=== PATIENT | male | born 1960 | race Caucasian/White ===

== ENCOUNTER 2021-11-30 13:32 | Inpatient (IN) ==
[2021-11-30 16:23] LABS: Basophils % 0.3 % (0.0-0.8); Eosinophils # 0.1 10*3/uL (0.0-0.87); Eosinophils % 0.8 % (0.00-10.9); Hematocrit 42.6 VOL% (42.0-52.0); Hemoglobin 13.5 GM/DL (14.0-18.0); Immature Granulocytes % 0.2 %; Immature Granulocytes Absolute 0.02 #; Lymphocytes # 1.2 10*3/uL (1.4-4.0); Mean Corpuscular HGB Conc 31.7 GM/DL (32-36); Mean Corpuscular Volume 93.4 FL (87-102); Mean Platelet Volume 11.2 FL (9.6-12.0); Monocytes # 0.6 10*3/uL (0.11-0.8); Monocytes % 6.1 % (1.7-12.7); Neutrophils % 79.6 % (38.7-73.9); Platelet Count 245 T/CUMM (130-400); Red Blood Count 4.56 MC/CUMM (3.8-5.5); Red Cell Distribution Width 16.2 % (9.3-17.3)
[2021-11-30 16:59] LABS: Albumin 2.7 G/DL (3.4-5.0); Bilirubin,Total 0.9 MG/DL (0.20-1.00); Calcium 8.4 MG/DL (8.5-10.1); Osmolality,Calculated 283.1 MOS/KG (273-304); Potassium 4.1 MMOL/L (3.5-5.1); Total Protein 5.7 G/DL (6.4-8.2)
[2021-11-30] MEDS ORDERED: GLUCAGON 1 MG VIAL IM PRN (17:27)
[2021-11-30] MEDS ORDERED: lisinopriL 10 MG TABLET PO STA (17:32)
[2021-11-30] MEDS ORDERED: ACETAMINOPHEN 325 MG TABLET PO PRN (17:32)
[2021-11-30] MEDS ORDERED: ONDANSETRON 4 MG/2 ML VIAL IV PRN (17:32)
[2021-11-30] MEDS ORDERED: hydrALAZINE 20 MG/1 ML VIAL IV PRN (17:32)
[2021-11-30] MEDS ORDERED: carvediloL 3.125 MG TABLET PO STA (17:32)
[2021-11-30] MEDS ORDERED: ALBUTEROL/IPRATROPIUM 3 ML NEB RESP TX PRN (17:42)
[2021-11-30] MEDS ORDERED: carvediloL 12.5 MG TABLET PO STA (17:44)
[2021-11-30] MEDS ORDERED: DEXTROSE 10% 250 ML BAG IV PRN (17:46)
[2021-11-30] MEDS ORDERED: MELATONIN 3 MG TABLET PO PRN (17:46)
[2021-11-30] MEDS: ENOXAPARIN 40 MG/0.4 ML SYRINGE SUBCUT SCH (18:06)
[2021-11-30] MEDS: predniSONE 20 MG TABLET PO SCH (18:10)
[2021-11-30 18:37] LABS: Thyroid Stimulating Hormone 2.29 uIU/ml (0.358-3.74)
[2021-11-30] MEDS: BUDESONIDE 0.5 MG/2 ML NEB RESP TX SCH (19:15)
[2021-11-30] MEDS ORDERED: FUROSEMIDE INJ 100 MG in SODIUM CHLORIDE 0.9% 90 ML IV SCH (20:00)
[2021-11-30] MEDS: POTASSIUM CHLORIDE 20 MEQ TABLET PO SCH (21:16)
[2021-11-30] MEDS: carvediloL 12.5 MG TABLET PO SCH (21:16)
[2021-11-30] MEDS: MONTELUKAST CHEW 4 MG TABLET PO SCH (21:16)
[2021-11-30 21:37] LABS: Barbiturates Screen,Urine Negative (Negative); Benzodiazepines Screen,Urine Negative (Negative); Cannabinoid Screen,Urine Positive (Negative); Opiate Screen,Urine Negative (Negative); Phencyclidine Screen,Urine Negative (Negative)
[2021-12-01 04:37] LABS: Basophils % 0.3 % (0.0-0.8); Hematocrit 38.2 VOL% (42.0-52.0); Hemoglobin 12.5 GM/DL (14.0-18.0); Immature Granulocytes % 0.3 %; Immature Granulocytes Absolute 0.02 #; Lymphocytes # 0.7 10*3/uL (1.4-4.0); Lymphocytes % 9.3 % (21.2-54.2); Mean Corpuscular HGB Conc 32.7 GM/DL (32-36); Mean Corpuscular Volume 90.7 FL (87-102); Mean Platelet Volume 10.2 FL (9.6-12.0); Monocytes # 0.2 10*3/uL (0.11-0.8); Monocytes % 2.1 % (1.7-12.7); Platelet Count 214 T/CUMM (130-400); Red Blood Count 4.21 MC/CUMM (3.8-5.5); Red Cell Distribution Width 15.9 % (9.3-17.3); White Blood Count 7.2 T/CUMM (4-12)
[2021-12-01 05:06] LABS: Calcium 8.7 MG/DL (8.5-10.1); Osmolality,Calculated 279.4 MOS/KG (273-304); Potassium 3.8 MMOL/L (3.5-5.1); Risk Ratio 3.04; VLDL Cholesterol 10.4 MG/DL
[2021-12-01] MEDS: BUDESONIDE 0.5 MG/2 ML NEB RESP TX SCH ×2 (06:56→19:00)
[2021-12-01] MEDS ORDERED: lisinopriL 20 MG TABLET PO SCH ×2 (09:00)
[2021-12-01] MEDS ORDERED: carvediloL 12.5 MG TABLET PO SCH (09:00)
[2021-12-01] MEDS: carvediloL 12.5 MG TABLET PO SCH ×2 (09:04→20:50)
[2021-12-01] MEDS: ASPIRIN CHEW 81 MG TABLET PO SCH (09:04)
[2021-12-01] MEDS: predniSONE 20 MG TABLET PO SCH (09:05)
[2021-12-01] MEDS: NICOTINE 21 MG/24 HR PATCH TRANSDERM SCH (09:05)
[2021-12-01] MEDS: lisinopriL 20 MG TABLET PO SCH (09:05)
[2021-12-01] MEDS: PANTOPRAZOLE 40 MG TABLET PO SCH (09:05)
[2021-12-01] MEDS: FUROSEMIDE 40 MG/4 ML VIAL IV SCH ×2 (09:18→17:45)
[2021-12-01] MEDS: POTASSIUM CHLORIDE 20 MEQ TABLET PO SCH ×2 (09:18→20:51)
[2021-12-01] MEDS: ENOXAPARIN 40 MG/0.4 ML SYRINGE SUBCUT SCH (17:45)
[2021-12-01] MEDS: MONTELUKAST CHEW 4 MG TABLET PO SCH (20:51)
[2021-12-02] MEDS: FUROSEMIDE 40 MG/4 ML VIAL IV SCH ×2 (01:25→08:34)
[2021-12-02 04:44] LABS: Basophils % 0.2 % (0.0-0.8); Hematocrit 37.6 VOL% (42.0-52.0); Hemoglobin 12.3 GM/DL (14.0-18.0); Immature Granulocytes % 0.4 %; Immature Granulocytes Absolute 0.04 #; Lymphocytes # 1.6 10*3/uL (1.4-4.0); Lymphocytes % 14.2 % (21.2-54.2); Mean Corpuscular HGB Conc 32.7 GM/DL (32-36); Mean Corpuscular Volume 90.4 FL (87-102); Mean Platelet Volume 10.8 FL (9.6-12.0); Monocytes # 0.9 10*3/uL (0.11-0.8); Monocytes % 7.7 % (1.7-12.7); Neutrophils % 77.5 % (38.7-73.9); Platelet Count 228 T/CUMM (130-400); Red Blood Count 4.16 MC/CUMM (3.8-5.5); Red Cell Distribution Width 15.9 % (9.3-17.3); White Blood Count 11.4 T/CUMM (4-12)
[2021-12-02 05:16] LABS: Osmolality,Calculated 283.4 MOS/KG (273-304); Potassium 3.4 MMOL/L (3.5-5.1)
[2021-12-02] MEDS: BUDESONIDE 0.5 MG/2 ML NEB RESP TX SCH ×2 (07:20→19:42)
[2021-12-02] MEDS: predniSONE 20 MG TABLET PO SCH (08:33)
[2021-12-02] MEDS: carvediloL 12.5 MG TABLET PO SCH ×2 (08:33→21:12)
[2021-12-02] MEDS: lisinopriL 20 MG TABLET PO SCH (08:33)
[2021-12-02] MEDS: PANTOPRAZOLE 40 MG TABLET PO SCH (08:34)
[2021-12-02] MEDS: ASPIRIN CHEW 81 MG TABLET PO SCH (08:34)
[2021-12-02] MEDS: NICOTINE 21 MG/24 HR PATCH TRANSDERM SCH (08:34)
[2021-12-02] MEDS: POTASSIUM CHLORIDE 20 MEQ TABLET PO SCH ×2 (08:34→21:12)
[2021-12-02] MEDS: amLODIPine 5 MG TABLET PO SCH (12:49)
[2021-12-02] MEDS: FUROSEMIDE 40 MG TABLET PO SCH (16:49)
[2021-12-02] MEDS: ENOXAPARIN 40 MG/0.4 ML SYRINGE SUBCUT SCH (18:08)
[2021-12-02] MEDS: MONTELUKAST CHEW 4 MG TABLET PO SCH (21:12)
[2021-12-03 05:02] LABS: Basophils % 0.3 % (0.0-0.8); Hematocrit 38.7 VOL% (42.0-52.0); Hemoglobin 12.5 GM/DL (14.0-18.0); Immature Granulocytes % 0.6 %; Immature Granulocytes Absolute 0.07 #; Lymphocytes # 1.6 10*3/uL (1.4-4.0); Lymphocytes % 13.7 % (21.2-54.2); Mean Corpuscular HGB Conc 32.3 GM/DL (32-36); Mean Corpuscular Volume 92.1 FL (87-102); Mean Platelet Volume 10.5 FL (9.6-12.0); Monocytes % 8.5 % (1.7-12.7); Neutrophils % 76.9 % (38.7-73.9); Platelet Count 235 T/CUMM (130-400); Red Cell Distribution Width 15.4 % (9.3-17.3); White Blood Count 11.7 T/CUMM (4-12)
[2021-12-03 05:27] LABS: Calcium 8.8 MG/DL (8.5-10.1); Osmolality,Calculated 281.7 MOS/KG (273-304); Potassium 4.2 MMOL/L (3.5-5.1)
[2021-12-03] MEDS: BUDESONIDE 0.5 MG/2 ML NEB RESP TX SCH (07:44)
[2021-12-03] MEDS: carvediloL 12.5 MG TABLET PO SCH (08:39)
[2021-12-03] MEDS: ASPIRIN CHEW 81 MG TABLET PO SCH (08:39)
[2021-12-03] MEDS: amLODIPine 5 MG TABLET PO SCH (08:39)
[2021-12-03] MEDS: lisinopriL 20 MG TABLET PO SCH (08:39)
[2021-12-03] MEDS: PANTOPRAZOLE 40 MG TABLET PO SCH (08:39)
[2021-12-03] MEDS: FUROSEMIDE 40 MG TABLET PO SCH (08:40)
[2021-12-03] MEDS: POTASSIUM CHLORIDE 20 MEQ TABLET PO SCH (08:40)
[2021-12-03] MEDS: NICOTINE 21 MG/24 HR PATCH TRANSDERM SCH (08:43)
[2021-12-03] MEDS ORDERED: predniSONE 10 MG TABLET PO SCH (09:00)
[2021-12-03] MEDS ORDERED: predniSONE 20 MG TABLET PO SCH (09:00)
[2021-12-03 12:08] VITALS: BP 121/69
== END 2021-12-03 12:55 | disposition home or self-care (01) | DRG 291 ==
LOC: N.ED 13:32 → N.TELEN 17:26 → SUATTDRO 17:26 → N.TELEN 19:24
PROVIDERS: ADMIT Internal Medicine; ATTEND Internal Medicine

== ENCOUNTER 2022-03-20 08:11 | Inpatient (IN) ==
[2022-03-20] MEDS ORDERED: cloNIDine 0.1 MG TABLET PO STA (08:39)
[2022-03-20] MEDS ORDERED: hydrALAZINE 20 MG/1 ML VIAL IV STA (08:40)
[2022-03-20 09:12] LABS: Arterial Base Excess iSTAT 0 MMOL/L (-2.5-2.5); Arterial Bicarbonate iSTAT 23.6 MMOL/L (20-26); Arterial O2 Saturation iSTAT 93 % (95-100); Arterial PCO2 iSTAT 33 MM HG (35-48); Arterial PO2 iSTAT 61 MM HG (80-95); Arterial Total CO2 iSTAT 25 MMO/L (23-27); Arterial pH iSTAT 7.466 (7.35-7.45)
[2022-03-20 09:21] LABS: Basophils % 0.3 % (0.0-0.8); Eosinophils % 0.2 % (0.00-10.9); Hematocrit 39.6 VOL% (42.0-52.0); Immature Granulocytes % 0.3 %; Immature Granulocytes Absolute 0.03 #; Lymphocytes # 1.3 10*3/uL (1.4-4.0); Lymphocytes % 11.4 % (21.2-54.2); Mean Corpuscular HGB Conc 32.8 GM/DL (32-36); Mean Corpuscular Volume 87.4 FL (87-102); Monocytes # 0.5 10*3/uL (0.11-0.8); Monocytes % 4.4 % (1.7-12.7); Neutrophils % 83.4 % (38.7-73.9); Platelet Count 272 T/CUMM (130-400); Red Blood Count 4.53 MC/CUMM (3.8-5.5); Red Cell Distribution Width 15.1 % (9.3-17.3); White Blood Count 11.5 T/CUMM (4-12)
[2022-03-20 10:02] LABS: Albumin 3.2 G/DL (3.4-5.0); Osmolality,Calculated 278.4 MOS/KG (273-304); Potassium 4.2 MMOL/L (3.5-5.1); Total Protein 7.3 G/DL (6.4-8.2)
[2022-03-20] MEDS ORDERED: METOPROLOL TARTRATE 5 MG/5 ML VIAL IV STA (10:08)
[2022-03-20] MEDS ORDERED: FUROSEMIDE 40 MG/4 ML VIAL IV STA (10:35)
[2022-03-20] MEDS ORDERED: BISACODYL 5 MG TABLET PO PRN (10:36)
[2022-03-20] MEDS ORDERED: ONDANSETRON 4 MG/2 ML VIAL IV PRN (10:36)
[2022-03-20] MEDS ORDERED: MORPHINE 2 MG/1 ML SYRINGE IV PRN (10:36)
[2022-03-20] MEDS ORDERED: ACETAMINOPHEN 325 MG TABLET PO PRN (10:36)
[2022-03-20] MEDS ORDERED: hydrALAZINE 20 MG/1 ML VIAL IV PRN (10:36)
[2022-03-20 11:00] LABS: Barbiturates Screen,Urine Negative (Negative); Benzodiazepines Screen,Urine Negative (Negative); Cannabinoid Screen,Urine Negative (Negative); Opiate Screen,Urine Negative (Negative); Phencyclidine Screen,Urine Negative (Negative)
[2022-03-20] MEDS: ENOXAPARIN 40 MG/0.4 ML SYRINGE SUBCUT SCH (11:05)
[2022-03-20] MEDS: LOSARTAN 25 MG TABLET PO SCH ×2 (11:05→21:33)
[2022-03-20] MEDS: carvediloL 25 MG TABLET PO SCH ×2 (11:07→21:33)
[2022-03-20 11:08] LABS: Risk Ratio 3.17; VLDL Cholesterol 15.4 MG/DL
[2022-03-20] MEDS: ALBUTEROL/IPRATROPIUM 3 ML NEB RESP TX SCH ×2 (14:35→19:22)
[2022-03-20] MEDS: FUROSEMIDE 40 MG/4 ML VIAL IV SCH (17:34)
[2022-03-21] MEDS: ALBUTEROL/IPRATROPIUM 3 ML NEB RESP TX SCH ×4 (01:50→19:34)
[2022-03-21 07:19] LABS: Calcium 8.9 MG/DL (8.5-10.1); Osmolality,Calculated 276.7 MOS/KG (273-304); Potassium 3.9 MMOL/L (3.5-5.1)
[2022-03-21 08:54] LABS: Basophils % 0.3 % (0.0-0.8); Eosinophils # 0.1 10*3/uL (0.0-0.87); Eosinophils % 0.8 % (0.00-10.9); Hematocrit 37.6 VOL% (42.0-52.0); Hemoglobin 12.3 GM/DL (14.0-18.0); Immature Granulocytes % 0.3 %; Immature Granulocytes Absolute 0.02 #; Lymphocytes # 1.9 10*3/uL (1.4-4.0); Lymphocytes % 25.3 % (21.2-54.2); Mean Corpuscular HGB Conc 32.7 GM/DL (32-36); Mean Corpuscular Volume 86.8 FL (87-102); Mean Platelet Volume 10.9 FL (9.6-12.0); Monocytes # 0.6 10*3/uL (0.11-0.8); Neutrophils % 65.3 % (38.7-73.9); Platelet Count 285 T/CUMM (130-400); Red Blood Count 4.33 MC/CUMM (3.8-5.5); White Blood Count 7.4 T/CUMM (4-12)
[2022-03-21] MEDS: LOSARTAN 25 MG TABLET PO SCH ×2 (08:56→21:28)
[2022-03-21] MEDS: ASPIRIN EC 325 MG TABLET PO SCH (08:56)
[2022-03-21] MEDS: FUROSEMIDE 40 MG/4 ML VIAL IV SCH ×2 (08:57→15:37)
[2022-03-21] MEDS: PANTOPRAZOLE 40 MG TABLET PO SCH (08:57)
[2022-03-21] MEDS ORDERED: FUROSEMIDE 40 MG TABLET PO SCH (09:00)
[2022-03-21] MEDS: carvediloL 12.5 MG TABLET PO SCH ×2 (09:00→21:27)
[2022-03-21] MEDS: ENOXAPARIN 40 MG/0.4 ML SYRINGE SUBCUT SCH (11:59)
[2022-03-22] MEDS: ALBUTEROL/IPRATROPIUM 3 ML NEB RESP TX SCH ×3 (00:48→13:00)
[2022-03-22 03:47] LABS: Basophils # 0.1 10*3/uL (0.0-0.2); Basophils % 0.7 % (0.0-0.8); Eosinophils # 0.1 10*3/uL (0.0-0.87); Eosinophils % 0.9 % (0.00-10.9); Hematocrit 39.5 VOL% (42.0-52.0); Hemoglobin 12.7 GM/DL (14.0-18.0); Immature Granulocytes % 0.3 %; Immature Granulocytes Absolute 0.02 #; Lymphocytes # 1.9 10*3/uL (1.4-4.0); Lymphocytes % 28.1 % (21.2-54.2); Mean Corpuscular HGB Conc 32.2 GM/DL (32-36); Mean Corpuscular Volume 87.6 FL (87-102); Monocytes # 0.8 10*3/uL (0.11-0.8); Monocytes % 11.2 % (1.7-12.7); Neutrophils % 58.8 % (38.7-73.9); Platelet Count 288 T/CUMM (130-400); Red Blood Count 4.51 MC/CUMM (3.8-5.5); Red Cell Distribution Width 14.9 % (9.3-17.3); White Blood Count 6.9 T/CUMM (4-12)
[2022-03-22 04:02] LABS: Calcium 8.9 MG/DL (8.5-10.1); Osmolality,Calculated 280.7 MOS/KG (273-304)
[2022-03-22] MEDS ORDERED: FUROSEMIDE 40 MG TABLET PO SCH (08:00)
[2022-03-22] MEDS: carvediloL 12.5 MG TABLET PO SCH (08:41)
[2022-03-22] MEDS: PANTOPRAZOLE 40 MG TABLET PO SCH (08:41)
[2022-03-22] MEDS: LOSARTAN 25 MG TABLET PO SCH (08:41)
[2022-03-22] MEDS: ASPIRIN EC 325 MG TABLET PO SCH (08:41)
[2022-03-22] MEDS: ENOXAPARIN 40 MG/0.4 ML SYRINGE SUBCUT SCH (11:32)
[2022-03-22 15:11] VITALS: BP 138/77
== END 2022-03-22 14:43 | disposition home or self-care (01) | DRG 291 ==
LOC: EDUNIT# → EDBD → N.EDINP 08:11 → N.ED 08:11 → SUATTDRO 11:43 → N.EDINP 12:22 → N.TELES 12:30
PROVIDERS: ADMIT Internal Medicine; ATTEND Hospitalist

== ENCOUNTER 2022-04-05 17:03 | Inpatient (IN) ==
[2022-04-05] MEDS ORDERED: SODIUM CHLORIDE 0.9% 1,000 ML IV STA (17:39)
[2022-04-05 17:49] LABS: Basophils % 0.5 % (0.0-0.8); Eosinophils # 0.1 10*3/uL (0.0-0.87); Eosinophils % 0.6 % (0.00-10.9); Hematocrit 42.7 VOL% (42.0-52.0); Hemoglobin 13.8 GM/DL (14.0-18.0); Immature Granulocytes % 0.7 %; Immature Granulocytes Absolute 0.06 #; Lymphocytes # 1.6 10*3/uL (1.4-4.0); Lymphocytes % 18.1 % (21.2-54.2); Mean Corpuscular HGB Conc 32.3 GM/DL (32-36); Mean Corpuscular Volume 90.1 FL (87-102); Mean Platelet Volume 10.9 FL (9.6-12.0); Monocytes # 0.7 10*3/uL (0.11-0.8); Neutrophils % 72.1 % (38.7-73.9); Platelet Count 209 T/CUMM (130-400); Red Blood Count 4.74 MC/CUMM (3.8-5.5); Red Cell Distribution Width 14.5 % (9.3-17.3); White Blood Count 8.8 T/CUMM (4-12)
[2022-04-05 18:06] LABS: Alanine Aminotransferase 16 U/L (16-61); Albumin 3.2 G/DL (3.4-5.0); Alkaline Phosphatase 102 U/L (45-117); Aspartate Amino Transferase 12 U/L (0-37); Blood Urea Nitrogen 12 MG/DL (7-18); Calcium 9.2 MG/DL (8.5-10.1); Carbon Dioxide 26 MMOL/L (21-32); Chloride 106 MMOL/L (98-107); Glucose 86 MG/DL (74-106); Osmolality,Calculated 273.7 MOS/KG (273-304); Potassium 4.1 MMOL/L (3.5-5.1); Sodium 138 MMOL/L (136-145); Total Protein 7.5 G/DL (6.4-8.2)
[2022-04-05 18:17] LABS: Bacteria,Urine Occasional /HPF (Few); Bilirubin,Urine Small mg/dL (Negative); Blood, Urine Negative (Negative); Glucose,Urine (UA) Negative (Negative); Ketones,Urine Negative (Negative); Mucus,Urine Occasional /LPF (Occasional); Nitrite,Urine Negative (Negative); Protein,Urine Negative (Negative); RBC,Urine <1 /HPF (0-4); Squamous Epithelial Cell,Urine Occasional /HPF (0-10); Urine Appearance Clear (Clear); Urine Color Yellow (Yellow); Urine Specific Gravity 1.025 (1.001-1.035)
[2022-04-05 18:53] LABS: Sedimentation Rate-Westergren 27 MM/HR (0-20)
[2022-04-05 19:10] LABS: Barbiturates Screen,Urine Negative (Negative); Benzodiazepines Screen,Urine Negative (Negative); Cannabinoid Screen,Urine Positive (Negative); Opiate Screen,Urine Negative (Negative); Phencyclidine Screen,Urine Negative (Negative)
[2022-04-05 19:59] LABS: INR 1.1; PT Patient Result 11.6 SECS (10.1-12.1)
[2022-04-05] MEDS ORDERED: ACETAMINOPHEN 325 MG TABLET PO PRN (20:19)
[2022-04-05] MEDS ORDERED: hydrALAZINE 20 MG/1 ML VIAL IV PRN (20:19)
[2022-04-05] MEDS ORDERED: ONDANSETRON 4 MG/2 ML VIAL IV PRN (20:19)
[2022-04-05] MEDS ORDERED: NICOTINE 21 MG/24 HR PATCH TRANSDERM PRN (20:19)
[2022-04-05] MEDS ORDERED: ASPIRIN 300 MG SUPP RECTAL STA (20:25)
[2022-04-05] MEDS ORDERED: ALBUTEROL/IPRATROPIUM 3 ML NEB RESP TX PRN (20:46)
[2022-04-05] MEDS: LACTATED RINGERS 1,000 ML IV SCH (20:56)
[2022-04-05] MEDS: ENOXAPARIN 40 MG/0.4 ML SYRINGE SUBCUT SCH (20:56)
[2022-04-06 05:40] LABS: Basophils % 0.4 % (0.0-0.8); Eosinophils # 0.1 10*3/uL (0.0-0.87); Eosinophils % 1.2 % (0.00-10.9); Hematocrit 39.1 VOL% (42.0-52.0); Hemoglobin 13.2 GM/DL (14.0-18.0); Immature Granulocytes % 0.2 %; Immature Granulocytes Absolute 0.02 #; Lymphocytes # 1.5 10*3/uL (1.4-4.0); Lymphocytes % 17.9 % (21.2-54.2); Mean Corpuscular HGB Conc 33.8 GM/DL (32-36); Mean Corpuscular Volume 87.3 FL (87-102); Mean Platelet Volume 10.4 FL (9.6-12.0); Monocytes # 0.7 10*3/uL (0.11-0.8); Monocytes % 8.3 % (1.7-12.7); Platelet Count 232 T/CUMM (130-400); Red Blood Count 4.48 MC/CUMM (3.8-5.5); Red Cell Distribution Width 14.3 % (9.3-17.3); White Blood Count 8.3 T/CUMM (4-12)
[2022-04-06 06:16] LABS: Calcium 9.1 MG/DL (8.5-10.1); Osmolality,Calculated 276.4 MOS/KG (273-304); Potassium 3.9 MMOL/L (3.5-5.1)
[2022-04-06] MEDS ORDERED: GLUCAGON 1 MG VIAL IM PRN (08:53)
[2022-04-06] MEDS ORDERED: DEXTROSE 10% 250 ML BAG IV PRN (08:55)
[2022-04-06] MEDS: ASPIRIN EC 325 MG TABLET PO SCH (11:11)
[2022-04-06] MEDS: carvediloL 12.5 MG TABLET PO SCH ×2 (11:11→20:39)
[2022-04-06] MEDS: FUROSEMIDE 40 MG TABLET PO SCH (11:11)
[2022-04-06] MEDS: INSULIN REGULAR 100 UNIT/ML SUBCUT SCH ×3 (12:05→20:37)
[2022-04-06] MEDS: LACTATED RINGERS 1,000 ML IV SCH (12:14)
[2022-04-06] MEDS: ATORVASTATIN 40 MG TABLET PO SCH (20:39)
[2022-04-06] MEDS: amLODIPine 10 MG TABLET PO SCH (20:39)
[2022-04-06] MEDS: ENOXAPARIN 40 MG/0.4 ML SYRINGE SUBCUT SCH (20:40)
[2022-04-07 04:48] LABS: Basophils % 0.6 % (0.0-0.8); Eosinophils # 0.1 10*3/uL (0.0-0.87); Eosinophils % 1.7 % (0.00-10.9); Hematocrit 39.4 VOL% (42.0-52.0); Hemoglobin 13.1 GM/DL (14.0-18.0); Immature Granulocytes % 0.3 %; Immature Granulocytes Absolute 0.02 #; Lymphocytes # 1.5 10*3/uL (1.4-4.0); Lymphocytes % 21.3 % (21.2-54.2); Mean Corpuscular HGB Conc 33.2 GM/DL (32-36); Mean Corpuscular Volume 86.8 FL (87-102); Mean Platelet Volume 10.6 FL (9.6-12.0); Monocytes # 0.6 10*3/uL (0.11-0.8); Monocytes % 7.8 % (1.7-12.7); Neutrophils % 68.3 % (38.7-73.9); Platelet Count 235 T/CUMM (130-400); Red Blood Count 4.54 MC/CUMM (3.8-5.5); White Blood Count 7.1 T/CUMM (4-12)
[2022-04-07 05:12] LABS: Bilirubin,Total 0.7 MG/DL (0.20-1.00); Osmolality,Calculated 276.5 MOS/KG (273-304); Potassium 3.7 MMOL/L (3.5-5.1); Risk Ratio 3.51; VLDL Cholesterol 14.4 MG/DL
[2022-04-07] MEDS: INSULIN REGULAR 100 UNIT/ML SUBCUT SCH ×4 (07:51→21:55)
[2022-04-07] MEDS: FUROSEMIDE 40 MG TABLET PO SCH (09:07)
[2022-04-07] MEDS: amLODIPine 10 MG TABLET PO SCH (09:07)
[2022-04-07] MEDS: carvediloL 12.5 MG TABLET PO SCH ×2 (09:07→20:56)
[2022-04-07] MEDS: ASPIRIN EC 325 MG TABLET PO SCH (09:07)
[2022-04-07] MEDS: lisinopriL 20 MG TABLET PO SCH (12:22)
[2022-04-07] MEDS: ENOXAPARIN 40 MG/0.4 ML SYRINGE SUBCUT SCH (20:56)
[2022-04-07] MEDS: ATORVASTATIN 40 MG TABLET PO SCH (20:56)
[2022-04-08 04:49] LABS: Basophils % 0.5 % (0.0-0.8); Eosinophils % 0.7 % (0.00-10.9); Hematocrit 39.5 VOL% (42.0-52.0); Hemoglobin 12.9 GM/DL (14.0-18.0); Immature Granulocytes % 0.3 %; Immature Granulocytes Absolute 0.02 #; Lymphocytes # 1.6 10*3/uL (1.4-4.0); Lymphocytes % 25.4 % (21.2-54.2); Mean Corpuscular HGB Conc 32.7 GM/DL (32-36); Mean Corpuscular Volume 87.4 FL (87-102); Mean Platelet Volume 10.9 FL (9.6-12.0); Monocytes # 0.6 10*3/uL (0.11-0.8); Neutrophils % 64.1 % (38.7-73.9); Platelet Count 225 T/CUMM (130-400); Red Blood Count 4.52 MC/CUMM (3.8-5.5); Red Cell Distribution Width 14.3 % (9.3-17.3); White Blood Count 6.1 T/CUMM (4-12)
[2022-04-08 05:14] LABS: Albumin 3.1 G/DL (3.4-5.0); Bilirubin,Total 0.4 MG/DL (0.20-1.00); Calcium 9.2 MG/DL (8.5-10.1); Osmolality,Calculated 277.7 MOS/KG (273-304); Potassium 3.9 MMOL/L (3.5-5.1)
[2022-04-08] MEDS: carvediloL 12.5 MG TABLET PO SCH ×2 (08:56→16:07)
[2022-04-08] MEDS: ASPIRIN EC 325 MG TABLET PO SCH (08:56)
[2022-04-08] MEDS: amLODIPine 10 MG TABLET PO SCH (08:56)
[2022-04-08] MEDS: FUROSEMIDE 40 MG TABLET PO SCH (08:56)
[2022-04-08] MEDS: lisinopriL 20 MG TABLET PO SCH (08:56)
[2022-04-08] MEDS: INSULIN REGULAR 100 UNIT/ML SUBCUT SCH ×4 (09:27→20:58)
[2022-04-08] MEDS: ATORVASTATIN 40 MG TABLET PO SCH (20:57)
[2022-04-08] MEDS: ENOXAPARIN 40 MG/0.4 ML SYRINGE SUBCUT SCH (20:57)
[2022-04-09 05:09] LABS: Basophils % 0.6 % (0.0-0.8); Eosinophils # 0.1 10*3/uL (0.0-0.87); Hematocrit 41.3 VOL% (42.0-52.0); Hemoglobin 13.6 GM/DL (14.0-18.0); Immature Granulocytes % 0.4 %; Immature Granulocytes Absolute 0.02 #; Lymphocytes # 1.6 10*3/uL (1.4-4.0); Lymphocytes % 30.5 % (21.2-54.2); Mean Corpuscular HGB Conc 32.9 GM/DL (32-36); Mean Corpuscular Volume 87.3 FL (87-102); Monocytes # 0.5 10*3/uL (0.11-0.8); Monocytes % 10.3 % (1.7-12.7); Neutrophils % 57.2 % (38.7-73.9); Platelet Count 204 T/CUMM (130-400); Red Blood Count 4.73 MC/CUMM (3.8-5.5); Red Cell Distribution Width 14.1 % (9.3-17.3); White Blood Count 5.2 T/CUMM (4-12)
[2022-04-09 05:30] LABS: Albumin 3.2 G/DL (3.4-5.0); Bilirubin,Total 0.4 MG/DL (0.20-1.00); Calcium 8.9 MG/DL (8.5-10.1); Osmolality,Calculated 280.4 MOS/KG (273-304); Potassium 3.7 MMOL/L (3.5-5.1); Total Protein 7.2 G/DL (6.4-8.2)
[2022-04-09] MEDS: INSULIN REGULAR 100 UNIT/ML SUBCUT SCH ×4 (07:13→21:24)
[2022-04-09] MEDS: lisinopriL 20 MG TABLET PO SCH (08:22)
[2022-04-09] MEDS: FUROSEMIDE 40 MG TABLET PO SCH (08:22)
[2022-04-09] MEDS: ASPIRIN EC 325 MG TABLET PO SCH (08:22)
[2022-04-09] MEDS: amLODIPine 10 MG TABLET PO SCH (08:22)
[2022-04-09] MEDS: carvediloL 12.5 MG TABLET PO SCH ×2 (08:24→16:05)
[2022-04-09] MEDS: ENOXAPARIN 40 MG/0.4 ML SYRINGE SUBCUT SCH (21:24)
[2022-04-09] MEDS: ATORVASTATIN 40 MG TABLET PO SCH (21:24)
[2022-04-10 05:29] LABS: Basophils % 0.3 % (0.0-0.8); Eosinophils # 0.1 10*3/uL (0.0-0.87); Eosinophils % 0.9 % (0.00-10.9); Hematocrit 40.5 VOL% (42.0-52.0); Hemoglobin 13.5 GM/DL (14.0-18.0); Immature Granulocytes % 0.3 %; Immature Granulocytes Absolute 0.02 #; Lymphocytes # 1.6 10*3/uL (1.4-4.0); Lymphocytes % 27.3 % (21.2-54.2); Mean Corpuscular HGB Conc 33.3 GM/DL (32-36); Mean Corpuscular Volume 87.9 FL (87-102); Mean Platelet Volume 10.5 FL (9.6-12.0); Monocytes # 0.6 10*3/uL (0.11-0.8); Neutrophils % 61.2 % (38.7-73.9); Platelet Count 219 T/CUMM (130-400); Red Blood Count 4.61 MC/CUMM (3.8-5.5); Red Cell Distribution Width 14.1 % (9.3-17.3); White Blood Count 5.8 T/CUMM (4-12)
[2022-04-10 05:49] LABS: Albumin 3.3 G/DL (3.4-5.0); Bilirubin,Total 0.4 MG/DL (0.20-1.00); Calcium 9.2 MG/DL (8.5-10.1); Osmolality,Calculated 282.3 MOS/KG (273-304); Potassium 3.9 MMOL/L (3.5-5.1); Total Protein 7.2 G/DL (6.4-8.2)
[2022-04-10] MEDS: INSULIN REGULAR 100 UNIT/ML SUBCUT SCH ×4 (07:26→20:39)
[2022-04-10] MEDS: ASPIRIN EC 325 MG TABLET PO SCH (09:28)
[2022-04-10] MEDS: amLODIPine 10 MG TABLET PO SCH (09:28)
[2022-04-10] MEDS: FUROSEMIDE 40 MG TABLET PO SCH (09:28)
[2022-04-10] MEDS: lisinopriL 20 MG TABLET PO SCH (09:29)
[2022-04-10] MEDS: carvediloL 12.5 MG TABLET PO SCH ×2 (09:29→16:36)
[2022-04-10] MEDS: ATORVASTATIN 40 MG TABLET PO SCH (20:40)
[2022-04-10] MEDS: ENOXAPARIN 40 MG/0.4 ML SYRINGE SUBCUT SCH (20:40)
[2022-04-11 06:10] LABS: Basophils % 0.5 % (0.0-0.8); Eosinophils # 0.1 10*3/uL (0.0-0.87); Eosinophils % 0.8 % (0.00-10.9); Hematocrit 40.3 VOL% (42.0-52.0); Hemoglobin 13.2 GM/DL (14.0-18.0); Immature Granulocytes % 1.7 %; Immature Granulocytes Absolute 0.11 #; Lymphocytes # 1.4 10*3/uL (1.4-4.0); Lymphocytes % 21.6 % (21.2-54.2); Mean Corpuscular HGB Conc 32.8 GM/DL (32-36); Mean Corpuscular Volume 87.4 FL (87-102); Monocytes # 0.7 10*3/uL (0.11-0.8); Monocytes % 10.2 % (1.7-12.7); Neutrophils % 65.2 % (38.7-73.9); Platelet Count 238 T/CUMM (130-400); Red Blood Count 4.61 MC/CUMM (3.8-5.5); Red Cell Distribution Width 14.2 % (9.3-17.3); White Blood Count 6.6 T/CUMM (4-12)
[2022-04-11 06:53] LABS: Albumin 3.5 G/DL (3.4-5.0); Bilirubin,Total 0.4 MG/DL (0.20-1.00); Calcium 9.4 MG/DL (8.5-10.1); Osmolality,Calculated 277.7 MOS/KG (273-304); Potassium 3.9 MMOL/L (3.5-5.1); Total Protein 7.6 G/DL (6.4-8.2)
[2022-04-11] MEDS: INSULIN REGULAR 100 UNIT/ML SUBCUT SCH ×4 (07:20→22:41)
[2022-04-11] MEDS: amLODIPine 10 MG TABLET PO SCH (09:54)
[2022-04-11] MEDS: lisinopriL 20 MG TABLET PO SCH (09:54)
[2022-04-11] MEDS: FUROSEMIDE 40 MG TABLET PO SCH (09:54)
[2022-04-11] MEDS: ASPIRIN EC 325 MG TABLET PO SCH (09:54)
[2022-04-11] MEDS: carvediloL 12.5 MG TABLET PO SCH ×2 (09:55→16:32)
[2022-04-11] MEDS: ATORVASTATIN 40 MG TABLET PO SCH (20:43)
[2022-04-11] MEDS: ENOXAPARIN 40 MG/0.4 ML SYRINGE SUBCUT SCH (20:44)
[2022-04-12 07:39] VITALS: BP 112/88
[2022-04-12] MEDS: ASPIRIN EC 325 MG TABLET PO SCH (08:03)
[2022-04-12] MEDS: carvediloL 12.5 MG TABLET PO SCH (08:03)
[2022-04-12] MEDS: FUROSEMIDE 40 MG TABLET PO SCH (08:03)
[2022-04-12] MEDS: lisinopriL 20 MG TABLET PO SCH (08:03)
[2022-04-12] MEDS: amLODIPine 10 MG TABLET PO SCH (08:03)
[2022-04-12] MEDS: INSULIN REGULAR 100 UNIT/ML SUBCUT SCH (08:05)
== END 2022-04-12 10:39 | disposition home or self-care (01) | DRG 64 ==
LOC: N.3E 17:03 → N.ED 17:03 → N.3E 23:53 → SUATTDRO 04-06 19:58
PROVIDERS: ADMIT Family Medicine; ATTEND Internal Medicine